=== PATIENT | female | born 1970 | race Caucasian/White ===

== ENCOUNTER → 2021-02-06 | Outpatient (CLI) | payer OTHER | LOC: HYPER 07:37 | PROVIDERS: ATTEND Emergency Medicine | DX: L97.422 Non-pressure chronic ulcer of left heel and midfoot with fat layer exposed (principal); L84 Corns and callosities; Q05.7 Lumbar spina bifida without hydrocephalus; E66.9 Obesity, unspecified; G60.3 Idiopathic progressive neuropathy; G89.29 Other chronic pain; M54.6 Pain in thoracic spine; Z68.27 Body mass index [BMI] 27.0-27.9, adult; Z90.710 Acquired absence of both cervix and uterus ==

== ENCOUNTER → 2021-02-20 | Outpatient (CLI) | payer OTHER | LOC: HYPER 07:54 | PROVIDERS: ATTEND Emergency Medicine | DX: L97.422 Non-pressure chronic ulcer of left heel and midfoot with fat layer exposed (principal); L84 Corns and callosities; G60.3 Idiopathic progressive neuropathy; Q05.7 Lumbar spina bifida without hydrocephalus; M54.6 Pain in thoracic spine; G83.9 Paralytic syndrome, unspecified; E66.9 Obesity, unspecified; M54.9 Dorsalgia, unspecified; G89.29 Other chronic pain; Z68.27 Body mass index [BMI] 27.0-27.9, adult; Z91.81 History of falling; Z98.890 Other specified postprocedural states; Z79.899 Other long term (current) drug therapy; Z90.710 Acquired absence of both cervix and uterus ==

== ENCOUNTER → 2021-03-13 | Outpatient (CLI) | payer OTHER | LOC: HYPER 09:32 | PROVIDERS: ATTEND Emergency Medicine | DX: L97.422 Non-pressure chronic ulcer of left heel and midfoot with fat layer exposed (principal); L84 Corns and callosities; G60.3 Idiopathic progressive neuropathy; G83.9 Paralytic syndrome, unspecified; G89.29 Other chronic pain; E66.9 Obesity, unspecified; Q05.7 Lumbar spina bifida without hydrocephalus; M54.6 Pain in thoracic spine; M54.9 Dorsalgia, unspecified; Z68.27 Body mass index [BMI] 27.0-27.9, adult; Z90.710 Acquired absence of both cervix and uterus ==

== ENCOUNTER → 2021-03-28 | Outpatient (CLI) | payer OTHER | LOC: HYPER 09:12 | PROVIDERS: ATTEND Emergency Medicine | DX: L97.422 Non-pressure chronic ulcer of left heel and midfoot with fat layer exposed (principal); G60.3 Idiopathic progressive neuropathy; Q05.7 Lumbar spina bifida without hydrocephalus; M54.6 Pain in thoracic spine; L84 Corns and callosities; E66.9 Obesity, unspecified; Q05.9 Spina bifida, unspecified; G89.29 Other chronic pain; M54.9 Dorsalgia, unspecified; Z91.81 History of falling; Z68.27 Body mass index [BMI] 27.0-27.9, adult ==

== ENCOUNTER → 2021-04-09 | Outpatient (CLI) | payer OTHER | LOC: HYPER 13:47 | PROVIDERS: ATTEND Emergency Medicine | DX: L97.422 Non-pressure chronic ulcer of left heel and midfoot with fat layer exposed (principal); L97.522 Non-pressure chronic ulcer of other part of left foot with fat layer exposed; G60.3 Idiopathic progressive neuropathy; Q05.7 Lumbar spina bifida without hydrocephalus; M54.6 Pain in thoracic spine; L84 Corns and callosities; G83.9 Paralytic syndrome, unspecified; G89.29 Other chronic pain; E66.9 Obesity, unspecified; Z68.27 Body mass index [BMI] 27.0-27.9, adult; Z91.81 History of falling; Z79.899 Other long term (current) drug therapy ==

== ENCOUNTER → 2021-05-01 | Outpatient (CLI) | payer OTHER | LOC: HYPER 10:52 | PROVIDERS: ATTEND Emergency Medicine | DX: L97.425 Non-pressure chronic ulcer of left heel and midfoot with muscle involvement without evidence of necrosis (principal); L97.521 Non-pressure chronic ulcer of other part of left foot limited to breakdown of skin; L84 Corns and callosities; G60.3 Idiopathic progressive neuropathy; Q05.7 Lumbar spina bifida without hydrocephalus; M54.6 Pain in thoracic spine; G83.9 Paralytic syndrome, unspecified; G89.29 Other chronic pain; E66.9 Obesity, unspecified; Z68.27 Body mass index [BMI] 27.0-27.9, adult ==

== ENCOUNTER → 2021-05-22 | Outpatient (CLI) | payer OTHER | LOC: HYPER 10:51 | PROVIDERS: ATTEND Emergency Medicine | DX: L97.422 Non-pressure chronic ulcer of left heel and midfoot with fat layer exposed (principal); L84 Corns and callosities; E66.9 Obesity, unspecified; G60.3 Idiopathic progressive neuropathy; Q05.7 Lumbar spina bifida without hydrocephalus; G83.9 Paralytic syndrome, unspecified; G89.29 Other chronic pain; M54.6 Pain in thoracic spine; Z68.27 Body mass index [BMI] 27.0-27.9, adult ==